=== PATIENT | female | born 1985 | race African-American/Black ===

== ENCOUNTER 2016-10-21 17:26 | Inpatient (IN) | payer OTHER ==
--- NOTE | ~2016-10-21 | DS ---
Discharge Summary [facility] [address] [place]. [address] NAME: KRISTOPHER BLOOM : 81 STATUS : ADM Emile PAT#: [id number] AGE: 31 ADM/REG DATE : 10/21/16 MR#: [id number] REPORT SERV DATE: 10/24/16 DICTATED BY: WERNER TINAJERO DATE: 10/24/16 REPORT STATUS : Draft TRANSCRIBED BY: MODL DATE: 10/24/16 ADMISSION DATE: 10/21/2016 DISCHARGE DATE: 10/24/2016 DISCHARGE DIAGNOSES: 1. Suspected acute pyelonephritis, left side. 2. Leukocytosis, resolved. 3. Hematuria, improved. 4. Constipation related to medications. 5. History of gastroesophageal reflux disease. HISTORY: This patient presents to our emergency room with complaints of left flank pain starting on the Friday prior to admission. Then, she developed nausea and vomiting. There was no blood in the emesis. She came to the emergency room at [facility] with these complaints and was found to have an elevated white blood count of 20.4. CT scan of the abdomen and pelvis read by radiologist was remarkable for diffuse prominence of the left kidney with edema and inflammation. No evidence of kidney stone or hydronephrosis. This was thought to represent pyelonephritis. There was some left pleural fluid and bibasilar atelectasis. It was otherwise unremarkable. She was referred to our team for inpatient care. Blood cultures, no growth. Urine culture, only grew out 5000 mixed ja. She was treated with Rocephin. She remained afebrile. Her white blood count came back to normal. Her hemoglobin and platelets were normal. Her creatinine was normal through her whole time here. She was treated with the Rocephin as well as pain medicine and nausea medicine and improved. Followup urinalysis on 10/22/2016 showed improvement; however, she still has some hematuria, "this will need to be followed up by the PCP". Serum test was negative. Renal ultrasound was negative. DISCHARGE MEDICATIONS: Will include Dulcolax that she was already taking p.r.n. for constipation, Tylenol 650 q.6 hours p.r.n. for mild pain; Alvada 5/325 t.i.d. p.r.n. for pswrditw-go-npdgoo pain, #21, no refill; ondansetron ODT 4 mg t.i.d. p.r.n. for nausea, #15 prescribed, she takes Junel one tablet daily as a control, Maalox p.r.n., multivitamin once a day, amoxicillin 500 mg p.o. t.i.d. for seven days, qsgi-gez-hvrmnrd Florastor one p.o. b.i.d. for three weeks, lactulose 30 mL p.o. daily to b.i.d. p.r.n. for constipation. She is to follow up with her PCP, Dr. Christiana Crowe next week. She is requesting some time off with work with her medical condition. She was given a note starting 10/21/2016, okay to go back to work on 11/06/2016 at full duties. I spent 31 minutes today with the patient and with discharge planning. Discharge Summary [address] [address] NAME: KRISTOPHER BLOOM : 81 STATUS : ADM Emile PAT#: [id number] AGE: 31 ADM/REG DATE : 10/21/16 MR#: [id number] REPORT SERV DATE: 10/24/16 DICTATED BY: WERNER TINAJERO DATE: 10/24/16 REPORT STATUS : Draft TRANSCRIBED BY: LUCAS DATE: 10/24/16 LEXIS/LUCAS Werner Tinajero M.D. / [id number] CC: Bashir Gaspar Jr, MD Katrina V Gooden
--- NOTE | ~2016-10-21 | HP ---
History And Physical [facility] [address] [place]. [address] NAME: KRISTOPHER AYALA : 81 STATUS : ADM Emile PAT#: [id number] AGE: 31 ADM/REG DATE : 10/21/16 MR#: [id number] REPORT SERV DATE: 10/22/16 DICTATED BY: SERJIO OLIVEIRA DATE: 10/21/16 REPORT STATUS : Draft TRANSCRIBED BY: MODL DATE: 10/21/16 DATE OF ADMISSION: 10/21/2016 CHIEF COMPLAINT: Abdominal pain, flank pain, and nausea and vomiting. HISTORY OF PRESENT ILLNESS: This is a 31-year-old female with no significant past medical history, who presents to the emergency room at [facility] with the above-mentioned complaint. History is obtained from the patient, her mother who is at bedside, and reviewing data available on the [employer]. According to Ms. Ayala, she had been in the usual state of health until Friday when she started experiencing left-sided flank pain, 6/10 in intensity, sharp, stabbing, which waxes and wanes. This was soon associated with nausea and vomiting as well. Vomitus was clear, sometimes what she ate or tried to eat and not bloody. She did not have any dysuria. She thought it would go away, but when the pain continued into Friday and then through Friday, she told this to her mother who decided to bring her to the ER to be evaluated. In the emergency room, initial workup including a CT of the abdomen and pelvis showed features suggestive of acute pyelonephritis and she had a leukocyte count as well. She also had some rbc's in her urine along with an infection. Hospitalist Service is asked to admit her for treatment of acute pyelonephritis. At the time of my evaluation, she denied any chest pain, palpitations, or orthopnea. She had no cough, hemoptysis, night sweats, or weight loss. She has not had any recent falls or loss of consciousness. She did not have any fevers or chills at home. Had nausea and vomiting as mentioned above, but no diarrhea. No history of hematemesis or hematochezia. No other history of recent travel or exposures. PAST MEDICAL HISTORY: Her past medical history is significant for gastroesophageal reflux disease. SOCIAL HISTORY: She does not smoke, drink, or use recreational drugs. FAMILY HISTORY: Noncontributory. MEDICATIONS: Her medications at home were reviewed by me in the chart today and reordered by me. REVIEW OF SYSTEMS: As in history of present illness. All other systems were reviewed in detail and are quite unremarkable. PHYSICAL EXAMINATION: GENERAL: This is a pleasant 31-year-old, not in any acute distress. She is alert, awake, oriented to time, place, and person. HEENT: Her head is atraumatic and normocephalic. Her pupils are equal, reacting to light History And Physical [address] [address] NAME: KRISTOPHER AYALA : 81 STATUS : ADM Emile PAT#: [id number] AGE: 31 ADM/REG DATE : 10/21/16 MR#: [id number] REPORT SERV DATE: 10/22/16 DICTATED BY: SERJIO OLIVEIRA DATE: 10/21/16 REPORT STATUS : Draft TRANSCRIBED BY: LUCAS DATE: 10/21/16 and accommodating. External ocular muscles are intact. Membranes are moist and pink. Sclerae are nonicteric. NECK: Supple with no jugular venous distention, lymphadenopathy, or thyromegaly. LUNGS: Clear to auscultation with no wheezes, rubs, or crackles. HEART: Heart sounds were regular with no murmurs, rubs, or gallops. ABDOMEN: Soft and nontender. Bowel sounds are present. EXTREMITIES: Showed no cyanosis, clubbing, or edema. NEUROLOGIC: Grossly intact. No focal sensory or motor deficits. Higher functions appeared intact. Gait was not examined. VITAL SIGNS: Her vital signs today showed a temperature of 98.7, pulse 105, respirations 16 a minute, blood pressure was 160/94, and oxygen saturations were 99%, breathing on room air. LABORATORY DATA: Reviewed on the [employer] System showed normal CMP with a glucose of 88. Alkaline phosphatase, ALT, and AST were within normal limits. Lipase was 142. Beta-hCG in the urine was negative. White blood cell count was 20,400. Normal hemoglobin, hematocrit, and platelet count. Urinalysis showed haziness in appearance, 100 proteins, trace ketones, large blood, trace leukocyte esterase, more than 182 rbc's, and 10 wbc's. Films of the CT scan of her abdomen and pelvis were reviewed by me on the PACS today and interpreted by me. Official radiology report was also reviewed. There is edema and inflammation in the perinephric fat in the left kidney suggestive of pyelonephritis. There is no hydronephrosis. There is also a left-sided pleural effusion. IMPRESSION: 1. Intractable nausea and vomiting. 2. Acute pyelonephritis. 3. Gastroesophageal reflux disease. 4. Abdominal pain. 5. Left pleural effusion. PLAN: We will admit Ms. Ayala to the Hospitalist Service with defensive monitoring for a 24- hour observation period. After cultures are drawn, we will start her on empiric IV antibiotics with ceftriaxone. Follow Gram stain cultures and adjust accordingly. We will also start her on IV fluids for hydration, check chemistry, CBC in the morning and replace electrolytes as needed. We will start her on oral Lortab for pain along with small doses of Dilaudid if she should need it on an as-needed basis. We will also provide intravenous Zofran and Phenergan for symptoms of nausea and vomiting. She will be placed on SCDs for DVT prophylaxis while here as well. I have discussed the above plans with the patient and her mother, questions were answered, and she is agreeable to the above recommendations. Hospitalist Service will be following her during her stay here. /LUCAS Serjio Oliveira M.D. History And Physical [address] [address] NAME: KRISTOPHER AYALA : 81 STATUS : ADM Emile PAT#: [id number] AGE: 31 ADM/REG DATE : 10/21/16 MR#: [id number] REPORT SERV DATE: 10/22/16 DICTATED BY: SERJIO OLIVEIRA DATE: 10/21/16 REPORT STATUS : Draft TRANSCRIBED BY: LUCAS DATE: 10/21/16 / [id number] CC: Bashir Gaspar Jr, ESTHELA PIERRE V.
[2016-10-21 15:38] LABS: BASOPHILS 0.1 %; BASOPHILS ABSOLUTE 0.02 10/3/uL (0.0-0.16); EOSINOPHILS 0 %; ER CBC TAT 0 Hrs 07 Mins; HEMATOCRIT 41.7 % (36.0-48.0); HEMOGLOBIN 14.2 g/dL (12.0-16.0); IMMATURE GRANULOCYTES 0.3 %; IMMATURE GRANULOCYTES ABSOLUTE 0.07 10/3/uL (0.0-0.11); LYMPHOCYTES 10.7 %; LYMPHOCYTES ABSOLUTE 2.19 10/3/uL (0.67-4.30); MANUAL DIFF NO %; MEAN CORPUS HGB CONC 34.1 g/dL (32.0-36.0); MEAN CORPUSCULAR HEMOGLOB 29.5 pg (26.0-34.0); MEAN CORPUSCULAR VOLUME 86.7 fL (80-100); MEAN PLATELET VOLUME 11.2 fL (9.2-13.0); MONOCYTES 6.7 %; MONOCYTES ABSOLUTE 1.36 10/3/uL (0.21-1.20); NEUTROPHILS 82.2 %; NEUTROPHILS ABSOLUTE 16.77 10/3/uL (2.02-8.40); PLATELET COUNT 191 10/3/uL (150-400); RBC DISTRIBUTION WIDTH 12.9 % (12.0-16.0); RED CELL COUNT 4.81 10/6/uL (4.0-5.6); WHITE BLOOD CELLS 20.4 10/3/uL (4.5-10.5)
[2016-10-21 15:47] LABS: ASCORBIC ACID (UR NOT ORDER) NEG (NEG); BILIRUBIN, URINE NEGATIVE (NEG); ER URINALYSIS TAT 0 Hrs 16 Mins; KETONE, URINE TRACE MG/DL (NEG); LEUKOCYTE ESTERASE(NOT OR TRACE (NEG); NITRITE (URINE) NEG (NEG); WBC (NOT ORDERED) (RFLEX) 10 (0-5)
[2016-10-21 15:57] LABS: A/G RATIO 0.7 (0.7-1.9); ALBUMIN 3.5 G/DL (3.5-5.0); ALKALINE PHOSPHATASE 59 U/L (45-117); BUN (BLOOD UREA NITROGEN) 7 MG/DL (6-23); CHLORIDE, SERUM 104 MMOL/L (96-112); CO2 (CARBON DIOXIDE) 25 MMOL/L (24-34); CREATININE 0.96 MG/DL (0.55-1.02); GFR AFRICAN AMERICAN 90 ML/MIN (>=60); GFR NON AFRICAN AMERICAN 78 ML/MIN (>=60); GLOBULIN 4.8 G/DL (2.5-4.1); GLUCOSE, SERUM 88 MG/DL (60-99); POTASSIUM, SERUM 3.7 MMOL/L (3.5-5.3); SGOT(AST) 22 U/L (5-40); SGPT(ALT) 30 U/L (5-65); SODIUM, SERUM 139 MMOL/L (135-148); TOTAL BILIRUBIN 0.8 MG/DL (0-1.2); TOTAL PROTEIN 8.3 G/DL (6.0-8.5)
[2016-10-21] MEDS ORDERED: JUNEL PO (18:58)
[2016-10-21] MEDS ORDERED: THERGRANM PO (18:58)
[2016-10-21] MEDS ORDERED: BIST PO (18:59)
[2016-10-21] MEDS ORDERED: MAALOX PO (18:59)
[2016-10-22 05:43] LABS: BASOPHILS 0.1 %; BASOPHILS ABSOLUTE 0.02 10/3/uL (0.0-0.16); EOSINOPHILS 0.1 %; EOSINOPHILS ABSOLUTE 0.02 10/3/uL (0.0-0.53); HEMATOCRIT 38.7 % (36.0-48.0); HEMOGLOBIN 12.9 g/dL (12.0-16.0); IMMATURE GRANULOCYTES 0.4 %; IMMATURE GRANULOCYTES ABSOLUTE 0.06 10/3/uL (0.0-0.11); LYMPHOCYTES 18.4 %; LYMPHOCYTES ABSOLUTE 2.67 10/3/uL (0.67-4.30); MEAN CORPUS HGB CONC 33.3 g/dL (32.0-36.0); MEAN CORPUSCULAR HEMOGLOB 29.4 pg (26.0-34.0); MEAN CORPUSCULAR VOLUME 88.2 fL (80-100); MEAN PLATELET VOLUME 10.9 fL (9.2-13.0); MONOCYTES 7.6 %; MONOCYTES ABSOLUTE 1.11 10/3/uL (0.21-1.20); NEUTROPHILS 73.4 %; NEUTROPHILS ABSOLUTE 10.67 10/3/uL (2.02-8.40); PLATELET COUNT 164 10/3/uL (150-400); RED CELL COUNT 4.39 10/6/uL (4.0-5.6); WHITE BLOOD CELLS 14.6 10/3/uL (4.5-10.5)
[2016-10-22 05:44] LABS: MANUAL DIFF NO %
[2016-10-22 05:58] LABS: BUN (BLOOD UREA NITROGEN) 7 MG/DL (6-23); CALCIUM, SERUM 8.4 MG/DL (8.5-10.4); CHLORIDE, SERUM 109 MMOL/L (96-112); CO2 (CARBON DIOXIDE) 21 MMOL/L (24-34); GFR AFRICAN AMERICAN 97 ML/MIN (>=60); GFR NON AFRICAN AMERICAN 84 ML/MIN (>=60); GLUCOSE, SERUM 85 MG/DL (60-99); PHOSPHORUS, SERUM 2.1 MG/DL (2.5-4.5); SODIUM, SERUM 141 MMOL/L (135-148)
[2016-10-22 15:44] LABS: ASCORBIC ACID (UR NOT ORDER) NEG (NEG); BILIRUBIN, URINE NEGATIVE (NEG); KETONE, URINE NEGATIVE (NEG); LEUKOCYTE ESTERASE(NOT OR SMALL (NEG); WBC (NOT ORDERED) (RFLEX) 9 (0-5)
[2016-10-23 05:02] LABS: HEMATOCRIT 35.9 % (36.0-48.0); MEAN CORPUS HGB CONC 33.4 g/dL (32.0-36.0); MEAN CORPUSCULAR HEMOGLOB 29.3 pg (26.0-34.0); MEAN CORPUSCULAR VOLUME 87.8 fL (80-100); MEAN PLATELET VOLUME 11.4 fL (9.2-13.0); PLATELET COUNT 172 10/3/uL (150-400); RBC DISTRIBUTION WIDTH 12.8 % (12.0-16.0); RED CELL COUNT 4.09 10/6/uL (4.0-5.6); WHITE BLOOD CELLS 13.4 10/3/uL (4.5-10.5)
[2016-10-23 05:05] LABS: MANUAL DIFF YES %
[2016-10-23 05:42] LABS: BAND NEUTROPHILS 1 %; LYMPHOCYTES 16 %; LYMPHOCYTES ABSOLUTE (CALC) 2.14 10/3/uL (0.67-4.30); NEUTROPHILS ABSOLUTE (CALC) 11.26 10/3/uL (2.02-8.40); SEGMENTED NEUTROPHIL (0) 83 %; TOTAL NUCLEATED CELLS 100
[2016-10-23 05:43] LABS: PLATELET ESTIMATE ADQ (ADEQUATE)
[2016-10-24 05:35] LABS: BASOPHILS 0.6 %; BASOPHILS ABSOLUTE 0.06 10/3/uL (0.0-0.16); EOSINOPHILS 0.8 %; EOSINOPHILS ABSOLUTE 0.08 10/3/uL (0.0-0.53); HEMATOCRIT 36.6 % (36.0-48.0); HEMOGLOBIN 12.5 g/dL (12.0-16.0); IMMATURE GRANULOCYTES 0.3 %; IMMATURE GRANULOCYTES ABSOLUTE 0.03 10/3/uL (0.0-0.11); LYMPHOCYTES 22.5 %; LYMPHOCYTES ABSOLUTE 2.21 10/3/uL (0.67-4.30); MEAN CORPUS HGB CONC 34.2 g/dL (32.0-36.0); MEAN CORPUSCULAR HEMOGLOB 29.8 pg (26.0-34.0); MEAN CORPUSCULAR VOLUME 87.1 fL (80-100); MEAN PLATELET VOLUME 11.3 fL (9.2-13.0); MONOCYTES 7.6 %; MONOCYTES ABSOLUTE 0.75 10/3/uL (0.21-1.20); NEUTROPHILS 68.2 %; NEUTROPHILS ABSOLUTE 6.68 10/3/uL (2.02-8.40); PLATELET COUNT 193 10/3/uL (150-400); RBC DISTRIBUTION WIDTH 12.6 % (12.0-16.0); WHITE BLOOD CELLS 9.8 10/3/uL (4.5-10.5)
[2016-10-24 05:39] LABS: BUN (BLOOD UREA NITROGEN) 7 MG/DL (6-23); CALCIUM, SERUM 8.8 MG/DL (8.5-10.4); CHLORIDE, SERUM 106 MMOL/L (96-112); CO2 (CARBON DIOXIDE) 23 MMOL/L (24-34); CREATININE 0.82 MG/DL (0.55-1.02); GFR AFRICAN AMERICAN 109 ML/MIN (>=60); GFR NON AFRICAN AMERICAN 94 ML/MIN (>=60); GLUCOSE, SERUM 83 MG/DL (60-99); POTASSIUM, SERUM 3.6 MMOL/L (3.5-5.3); SODIUM, SERUM 142 MMOL/L (135-148)
[2016-10-24 05:41] LABS: MANUAL DIFF NO %
[2016-10-24] MEDS ORDERED: AUG500 PO (12:26)
[2016-10-24] MEDS ORDERED: NORCO1 TA1 PO (12:26)
[2016-10-24] MEDS ORDERED: CONSTULOSE PO (12:27)
[2016-10-24] MEDS ORDERED: ZOFRAN4 PO (12:30)
== END 2016-10-24 12:58 | disposition home or self-care (01) | DRG 690 ==
LOC: ER 17:26 → CDU1 19:50
PROVIDERS: Emergency Medicine; Internal Medicine; Internal Medicine Pulmonary Disease
DX: N10 Acute pyelonephritis (principal); J90 Pleural effusion, not elsewhere classified; R31.9 Hematuria, unspecified; K21.9 Gastro-esophageal reflux disease without esophagitis; D72.829 Elevated white blood cell count, unspecified; K59.00 Constipation, unspecified
CPT/HCPCS: 74176; 76775; 80048; 80053; 81001; 83690; 83735; 84100; 84703; 85025; 87040; 87086; 96374; 96376; 99285; A9270-GY; J1170; J2405